=== PATIENT | male | born 1945 | race Caucasian/White ===

== ENCOUNTER 2016-10-01 12:21 | Emergency (ER) | payer OTHER, MEDICARE ==
[~2016-10-01] VITALS: Ht 177.8 cm; Wt 79.4 kg
[~2016-10-01 12:21] MED LIST: ASPIRIN81 M1 PO; AVAPRO 150MG150 MG PO; PRAVASTATIN SOD40 MG PO
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
[2016-10-01] MEDS ORDERED: FINASTERIDE5 M1 PO (13:39)
[2016-10-01] MEDS ORDERED: TAMSULOSIN HCL0.4 M1 PO (13:39)
[2016-10-01] MEDS ORDERED: VIAGRA100 M1 PO (13:40)
[2016-10-01] MEDS ORDERED: PRAVASTATIN SOD40 M2 PO (13:40)
--- NOTE | 2016-10-01 14:06 | RADIOLOGY REPORT ---
EXAMINATION: XR ANKLE, RIGHT CLINICAL INFORMATION: Right ankle pain COMPARISON: None TECHNIQUE: AP, lateral, and mortise views of the right ankle. FINDINGS: Acute oblique comminuted fracture of the distal right fibula metadiaphysis with intra-articular extension. Minimal lateral and posterior displacement. Joint effusion is present. Extensive soft tissue swelling centered at the lateral malleolus. Inferior calcaneus enthesophyte at the insertion of the plantar fascia. IMPRESSION: Acute comminuted minimally displaced intra-articular oblique fracture of the distal right fibula metadiaphysis.
[2016-10-01 15:40] VITALS: BP 132/74
== END 2016-10-01 15:44 ==
LOC: ERH 12:21
DX: S89.301A Unspecified physeal fracture of lower end of right fibula, initial encounter for closed fracture (principal); W00.0XXA Fall on same level due to ice and snow, initial encounter; Y93.K1 Activity, walking an animal
CPT/HCPCS: 73610-RT

== ENCOUNTER 2017-02-02 13:46 | Emergency (ER) | payer OTHER, MEDICARE ==
[~2017-02-02] VITALS: Ht 177.8 cm; Wt 81.6 kg
[~2017-02-02 13:46] MED LIST changes: +FINASTERIDE5 M1 PO; +PRAVASTATIN SOD40 M2 PO; +TAMSULOSIN HCL0.4 M1 PO; +VIAGRA100 M1 PO
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
[2017-02-02 16:02] VITALS: BP 150/83
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
[2017-02-02] MEDS ORDERED: CEPHALEXIN500 M3 PO (16:41)
== END 2017-02-02 16:49 ==
LOC: ERH 13:46
DX: S50.311A Abrasion of right elbow, initial encounter (principal); M70.31 Other bursitis of elbow, right elbow; V13.4XXA Pedal cycle driver injured in collision with car, pick-up truck or van in traffic accident, initial encounter; Y93.55 Activity, bike riding; Y92.9 Unspecified place or not applicable
CPT/HCPCS: 73080-LT